=== PATIENT | female | born 1975 | race Caucasian/White ===

== ENCOUNTER 2018-04-28 17:59 | Inpatient (IN) ==
--- NOTE | 2018-04-28 19:59 | ED ---
HPI General Chief complaint: Psychiatric Symptoms Stated complaint: Psych Eval Vol Time Seen by Provider: 04/28/18 19:54 Source: patient Mode of arrival: ambulatory Limitations: no limitations History of Present Illness HPI narrative: 42-year-old female with history of bipolar disorder presents emergency department voluntarily for psychiatric evaluation. Patient states she has been worsening depression. She has been having suicidal thoughts. She has no active plan. Patient does have 2 previous suicide attempt many years ago. She states she is taking her medication as prescribed over the last 3 days her thoughts have become very strong. She has no other symptoms to report. Related Data Home Medications Medication Instructions Recorded Confirmed aripiprazole [Abilify] 15 mg PO DAILY 04/28/18 04/28/18 cetirizine [Zyrtec] 10 mg PO DAILY 04/28/18 04/28/18 duloxetine [Cymbalta] 60 mg PO BID 04/28/18 04/28/18 esomeprazole magnesium [Nexium] 40 mg PO DAILY 04/28/18 04/28/18 hydroxyzine pamoate 25 mg PO QID 04/28/18 04/28/18 lamotrigine [Lamictal] 150 mg PO BID 04/28/18 04/28/18 levothyroxine [Synthroid] 75 mcg PO DAILY 04/28/18 04/28/18 mirtazapine [Remeron] 15 mg PO HS 04/28/18 04/28/18 Allergies Allergy/AdvReac Type Severity Reaction Status Date / Time No Known Allergies Allergy Unverified 04/28/18 19:54 Review of Systems ROS: all other systems reviewed are negative PMFSH History History Provided By: Patient Medical History Medical History Anxiety (Acute) Bipolar disorder (Acute) Depression (Acute) Thyroid disease (Acute) Tibia/fibula fracture (Acute) Social History Social History Substance History: No History of Abuse Second Hand Smoke Exposure: No Smoking Status: Never smoker How Often Do You Have a Drink Containing Alcohol: Never Recent Travel in [place] within the Last 8 Weeks: No Recent Out of Country Travel within the Last 8 Weeks: No Course Initial Documented Vital Signs Temperature 98.4 F 04/28/18 18:22 Pulse Rate 121 H 04/28/18 18:22 Respiratory Rate 16 04/28/18 18:22 Blood Pressure 152/94 H 04/28/18 18:22 Pulse Oximetry 98 04/28/18 18:22 Last Documented Vital Signs Temperature 98.4 F 04/28/18 18:22 Pulse Rate 88 04/29/18 02:44 Respiratory Rate 17 04/29/18 02:44 Blood Pressure 134/62 04/29/18 02:44 Pulse Oximetry 98 04/29/18 02:44 Medical Decision Making JENNY Attestation JENNY supervised visit: Yes MDM Narrative Medical decision making narrative: 42-year-old female presents emergency department voluntarily for psychiatric evaluation. Patient appears well and without distress. Vital signs are stable. Lab work is reviewed and without acute concern. Patient is medically cleared to undergo psychiatric screening for further evaluation and disposition. Mental health screening discussed with the patient. Psychiatric screen ordered. Medical Screen Exam Complete: Yes Emergency Medical Condition: Yes Differential Diagnosis Differential Diagnosis: Mood disorder versus personality disorder versus adjustment reaction disorder Lab Data Lab results reviewed: Yes I reviewed the patient's lab results. Result diagrams: 04/28/18 20:08 04/28/18 20:08 Lab Results 04/28/18 04/28/18 04/28/18 Range/Units 20:08 20:08 20:08 WBC 12.0 H (4.0-11.0) th/mm3 RBC 4.68 (4.00-5.30) mil/mm3 Hgb 12.4 (11.6-15.3) gm/dL Hct 37.0 (35.0-46.0) % MCV 79.1 L (80.0-100.0) fL MCH 26.6 L (27.0-34.0) pg MCHC 33.6 (32.0-36.0) % RDW 14.5 (11.6-17.2) % Plt Count 517 H (150-450) th/mm3 MPV 7.3 (7.0-11.0) fL Neut % (Auto) 65.1 (16.0-70.0) % Lymph % (Auto) 25.7 (9.0-44.0) % [place] % (Auto) 6.4 (0.0-8.0) % Eos % (Auto) 1.8 (0.0-4.0) % Baso % (Auto) 1.0 (0.0-2.0) % Neut # (Auto) 7.8 H (1.8-7.7) th/mm3 Lymph # (Auto) 3.1 (1.0-4.8) th/mm3 [place] # (Auto) 0.8 (0.0-0.9) th/mm3 Eos # (Auto) 0.2 (0.0-0.4) th/mm3 Baso # (Auto) 0.1 (0.0-0.2) th/mm3 WBC Differential . Differential Comment Auto diff final Sodium 139 (136-145) meq/L Potassium 3.7 (3.5-5.1) meq/L Chloride 106 (98-107) meq/L Carbon Dioxide 24.5 (21.0-32.0) meq/L Anion Gap 9 (5-15) meq/L BUN 6 L (7-18) mg/dL Creatinine 0.74 (0.50-1.00) mg/dL Estimated GFR 86 L (>89) mL/min Random Glucose 113 H (74-106) mg/dL Calcium 8.8 (8.5-10.1) mg/dL TSH 2.920 (0.358-3.740) uIU/mL Urine Opiates Screen Neg (Neg) Ur Barbiturates Screen Neg (Neg) Ur Amphetamines Screen Neg (Neg) U Benzodiazepines Scrn Neg (Neg) Urine Cocaine Screen Neg (Neg) U Cannabinoids Screen Neg (Neg) Serum Alcohol Less than 3 (0-5) mg/dL Discharge Plan Discharge Disposition Patient Disposition: 30 Still Patient Discharge Condition Condition: Stable Discharge Details Diagnosis: Suicidal ideation Physicians Team ED Provider: Jeremiah Kenney ED Midlevel Provider: Chloe Velázquez Primary Care Provider: UNKNOWN, Rxs /Orders / Referrals /Forms Prescriptions: No Action lamotrigine [Lamictal] 150 mg Tablet 150 mg PO BID RF: 0 cetirizine [Zyrtec] 10 mg Tablet 10 mg PO DAILY RF: 0 levothyroxine [Synthroid] 75 mcg Tablet 75 mcg PO DAILY RF: 0 esomeprazole magnesium [Nexium] 40 mg Capsule,Delayed Release(Dr/Ec) 40 mg PO DAILY RF: 0 mirtazapine [Remeron] 15 mg Tablet 15 mg PO HS RF: 0 hydroxyzine pamoate 25 mg Capsule 25 mg PO QID RF: 0 aripiprazole [Abilify] 15 mg Tablet 15 mg PO DAILY RF: 0 duloxetine [Cymbalta] 60 mg Capsule,Delayed Release(Dr/Ec) 60 mg PO BID RF: 0 Status ED Status: Medically Cleared
[2018-04-28 20:24] LABS: Baso # (Auto) 0.1 th/mm3 (0.0-0.2); Eos # (Auto) 0.2 th/mm3 (0.0-0.4); Eos % (Auto) 1.8 % (0.0-4.0); Hemoglobin 12.4 gm/dL (11.6-15.3); Lymph # (Auto) 3.1 th/mm3 (1.0-4.8); Lymph % (Auto) 25.7 % (9.0-44.0); Mean Corpuscular HGB Conc 33.6 % (32.0-36.0); Mean Corpuscular Hemoglobin 26.6 pg (27.0-34.0); Mean Corpuscular Volume 79.1 fL (80.0-100.0); Mean Platelet Volume 7.3 fL (7.0-11.0); Mono # (Auto) 0.8 th/mm3 (0.0-0.9); Mono % (Auto) 6.4 % (0.0-8.0); Neut # (Auto) 7.8 th/mm3 (1.8-7.7); Neut % (Auto) 65.1 % (16.0-70.0); Platelet Count 517 th/mm3 (150-450); Red Blood Count 4.68 mil/mm3 (4.00-5.30); Red Cell Distribution Width 14.5 % (11.6-17.2)
[2018-04-28 20:32] LABS: Amphetamine Screen,Urine Neg (Neg); Barbiturate Screen,Urine Neg (Neg); Cannabinoid Screen,Urine Neg (Neg); Cocaine Screen,Urine Neg (Neg)
[2018-04-28 20:40] LABS: Anion Gap 9 meq/L (5-15); Blood Urea Nitrogen 6 mg/dL (7-18); Calcium 8.8 mg/dL (8.5-10.1); Carbon Dioxide 24.5 meq/L (21.0-32.0); Chloride 106 meq/L (98-107); Glomerular Filtration Rate 86 mL/min (>89); Glucose,Random 113 mg/dL (74-106); Potassium 3.7 meq/L (3.5-5.1); Sodium 139 meq/L (136-145)
[2018-04-28 20:42] LABS: Opiate Screen,Urine Neg (Neg)
[2018-04-28] MEDS ORDERED: OLANZapine 10 MG ODT Tablet PO ONE (21:38)
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
[2018-04-29 09:43] LABS: Alanine Aminotransferase 27 U/L (10-53); Albumin 3.7 g/dL (3.4-5.0); Aspartate Aminotransferase 23 U/L (15-37)
[2018-04-29 09:45] LABS: Alkaline Phosphatase 103 U/L (45-117); Total Protein 8.3 g/dL (6.4-8.2)
[2018-04-29] MEDS: lamoTRIgine 100 MG Tablet PO SCH ×2 (10:06→21:09)
[2018-04-29] MEDS: Duloxetine 60 MG DR Capsule PO SCH ×2 (10:06→21:08)
[2018-04-29] MEDS: Mirtazapine 15 MG Tablet PO SCH (21:09)
[2018-04-29] MEDS: Prazosin HCl 1 MG Capsule PO SCH (21:09)
[2018-04-30] MEDS: Levothyroxine 75 MCG Tablet PO SCH (05:39)
[2018-04-30] MEDS: lamoTRIgine 100 MG Tablet PO SCH ×2 (09:42→21:31)
[2018-04-30] MEDS: Duloxetine 60 MG DR Capsule PO SCH ×2 (09:43→21:28)
--- NOTE | 2018-04-30 13:41 | P.PNPSY ---
Subjective Chief Complaint: Depression, SI Remarks: Patient seen and examined with nurse. Chart reviewed. Case discussed with nursing staff. Patient placed with one-to-one sitter over the weekend because she declined contract for safety on the inpatient unit. Patient is reportedly displeased to have been placed with a one-to-one. I have endeavored to explain the rationale to her today for the one-to-one. She continues to endorse suicidal ideations with plans to self injure on the unit although she insists that she is "controlling these thoughts." Affect remains dysphoric. She continues to complain of anxiety and racing thoughts. She does not feel like the hydroxyzine is doing anything as it is currently dosed. Cluster B personality traits noted. Some staff splitting noted. Denies side effects from medications. Complains of headache says that she normally takes Fioricet. I did review the E-FORCSE report and see no controlled substances prescribed to the patient. She says that she got this medication in [facility]. I will have the nursing staff confirm with her pharmacy in that state whether she was receiving Fioricet. I will add Tylenol for the time being. Vital Signs Temp Pulse Resp BP Pulse Ox 04/30/18 05:59 97.7 F 90 16 113/57 L 95 04/29/18 18:40 89 132/63 95 Intake and Output 04/29/18 04/30/18 04/30/18 22:59 06:59 14:59 Other: Weight 87.3 kg 87.6 kg Weight On Admission 87.3 kg Labs reviewed. Recheck CBC for leukocytosis. Review of Systems All other systems reviewed negative except as stated in HPI Mental Status Examination Appearance: Appropriate Consciousness: Alert Orientation: x4 Motor Activity: Other (No abnormal motor movements noted) Speech: Unremarkable Language: Adequate Fund of Knowledge: Adequate Attention and Concentration: Adequate Memory: Unremarkable (Grossly intact on clinical exam) Mood: Sad Affect: Other (Dysphoric) Thought Process & Associations: Intact Thought Content: Appropriate Hallucination Type: None Delusion Type: None Suicidal Ideation: Yes Suicidal Plan: Yes Suicidal Intention: No Homicidal Ideation: No Homicidal Plan: No Homicidal Intention: No Insight: Fair Judgment: Impulsive Assessment and Plan - Assessment (1) Bipolar affective disorder, depressed Code(s): F31.30 - Bipolar disorder, current episode depressed, mild or moderate severity, unspecified Status: Acute (2) Chronic post-traumatic stress disorder (PTSD) Code(s): F43.12 - Post-traumatic stress disorder, chronic Status: Acute - Plan Plan: Titrate hydroxyzine to 50 mg 4 times a day. Continue other psychotropics as ordered. Continue one-to-one for safety given reported psychiatric symptoms as above. Continue to monitor on the inpatient unit. Continue other medications and care as ordered. Justification for Continued Inpatient Stay: Monitoring for impairment in safety. Medication changes. Risk for decompensation in less restrictive environment. Discharge Planning: Pending psychiatric stabilization. Case discussed with counselor. Request Healthcare Surrogate/Guardian Advocate?: No
[2018-04-30] MEDS: Acetaminophen 325 MG Tablet PO PRN (15:45)
--- NOTE | 2018-04-30 15:45 | P.TTN ---
- Patient Problems Problems: 1. Discharge planning 2. Medication compliance 3. Knowledge deficit 4. Lack of coping skills - Progress Toward Goals Provider Present: Dr. Luis Armando Alvares Provider Input: new admission over the weekend Nurse(s) Present: Vicente Nurse Input: Fair sleep pattern, treatment cooperative, med compliant Psychiatric Counselors Present: Dina Stoddard LCSW, Sae Braxton Jr., [facility], Unique Brown, [facility] Psychiatric Therapist Input: New over the weekend Group Spec/RT/OT/YOUNG Present: Anh Naylor, [facility] Group Spec/RT/OT/YOUNG Input: Pt attended the exercise group with her 1:1 this morning, patient appeared anxious and paranoid. Pt total focus was to no longer have a 1:1. - Documentation Teaching Recipient: Patient
[2018-04-30] MEDS ORDERED: Butalbital/APAP/Caff 50/325/40 MG Tablet PO PRN (18:00)
[2018-04-30 20:25] LABS: Baso % (Auto) 0.4 % (0.0-2.0); Eos # (Auto) 0.2 th/mm3 (0.0-0.4); Eos % (Auto) 2.2 % (0.0-4.0); Hematocrit 37.7 % (35.0-46.0); Hemoglobin 12.6 gm/dL (11.6-15.3); Lymph # (Auto) 3.4 th/mm3 (1.0-4.8); Lymph % (Auto) 31.2 % (9.0-44.0); Mean Corpuscular HGB Conc 33.3 % (32.0-36.0); Mean Corpuscular Hemoglobin 26.3 pg (27.0-34.0); Mean Corpuscular Volume 78.9 fL (80.0-100.0); Mean Platelet Volume 7.3 fL (7.0-11.0); Mono # (Auto) 0.9 th/mm3 (0.0-0.9); Neut # (Auto) 6.3 th/mm3 (1.8-7.7); Neut % (Auto) 58.2 % (16.0-70.0); Platelet Count 524 th/mm3 (150-450); Red Blood Count 4.78 mil/mm3 (4.00-5.30); White Blood Count 10.8 th/mm3 (4.0-11.0)
[2018-04-30] MEDS: Prazosin HCl 1 MG Capsule PO SCH (21:28)
[2018-04-30] MEDS: Mirtazapine 15 MG Tablet PO SCH (21:28)
[2018-05-01] MEDS: Levothyroxine 75 MCG Tablet PO SCH (06:14)
[2018-05-01] MEDS: Duloxetine 60 MG DR Capsule PO SCH ×2 (08:44→20:51)
[2018-05-01] MEDS: lamoTRIgine 100 MG Tablet PO SCH ×3 (08:44→20:56)
--- NOTE | 2018-05-01 15:37 | P.TTN ---
- Patient Problems Problems: 1. Discharge planning 2. Medication compliance 3. Knowledge deficit 4. Lack of coping skills - Progress Toward Goals Provider Present: Dr. Luis Armando Alvares Provider Input: new admission over the weekend. 05/01/18 D/c the 1:1 to contract for safety and then discuss a discharge home Nurse(s) Present: Vicente Nurse Input: Fair sleep pattern, treatment cooperative, med compliant Psychiatric Counselors Present: Dina Stoddard LCSW, Sae Braxton Jr., [facility], Unique Brown, [facility] Psychiatric Therapist Input: New over the weekend. 05/01/18 wants the 1:1 discontinued, but still is stating she want to kill herself, she is very easily aggitated and appears very attention seeking - she does not want residential, she does not want her boyfriend called by this counselor and does not want this counselor involved in her care Group Spec/RT/OT/YOUNG Present: Anh Naylor, [facility] Group Spec/RT/OT/YOUNG Input: Pt attended the exercise group with her 1:1 this morning, patient appeared anxious and paranoid. Pt total focus was to no longer have a 1:1. 05/01/18 very attention seeking comes to select groups - Documentation Teaching Recipient: Patient
--- NOTE | 2018-05-01 17:07 | P.PNPSY ---
Subjective Chief Complaint: Depression, SI Remarks: Patient seen and examined with nurse. Chart reviewed. Case discussed with staff. No behavioral issues noted overnight, no evidence of suicidality or self injury. Case discussed in treatment team. Counselor is subsequently alerts me that she had an interaction with the patient in which patient was engaging in staff splitting and displaying prominent borderline personality traits. Patient is requesting a new counselor, and I have discussed this with the counselor health unit supervisor. On my examination today, the patient continues to complain of feeling anxious and depressed. She endorses vague suicidal ideation but contracts for safety on the inpatient unit today. She continues to exhibit extremely prominent cluster B personality traits. She complains of poor sleep, and we discuss medication adjustments that might improve sleep. We discuss replacing Abilify with Zyprexa although I do caution her about the potential for weight gain. We agreed to start the patient on a calorie restricted diet to reduce the risk of this happening. No side effects from medications. No physical complaints. Vital Signs Temp Pulse Resp BP Pulse Ox 05/01/18 05:41 98 F 89 16 128/64 97 04/30/18 18:51 98.2 F 75 16 123/76 97 Laboratory Results - last 24 hr 04/30/18 19:45 WBC 10.8 RBC 4.78 Hgb 12.6 Hct 37.7 MCV 78.9 L MCH 26.3 L MCHC 33.3 RDW 15.0 Plt Count 524 H MPV 7.3 Neut % (Auto) 58.2 Lymph % (Auto) 31.2 Ness % (Auto) 8.0 Eos % (Auto) 2.2 Baso % (Auto) 0.4 Neut # (Auto) 6.3 Lymph # (Auto) 3.4 Ness # (Auto) 0.9 Eos # (Auto) 0.2 Baso # (Auto) 0.0 WBC Differential . Differential Comment Auto diff final Labs reviewed. Leukocytosis resolved. Review of Systems All other systems reviewed negative except as stated in HPI Mental Status Examination Appearance: Appropriate Consciousness: Alert Orientation: x4 Motor Activity: Other (No motor abnormalities noted) Speech: Unremarkable Language: Adequate Fund of Knowledge: Adequate Attention and Concentration: Adequate Memory: Unremarkable (Grossly intact on clinical exam) Mood: Sad Affect: Other (Seems less dysphoric today) Thought Process & Associations: Intact Thought Content: Appropriate Hallucination Type: None Delusion Type: None Suicidal Ideation: Yes (Vague) Suicidal Plan: No Suicidal Intention: No (Contracts for safety on the inpatient unit) Homicidal Ideation: No Homicidal Plan: No Homicidal Intention: No Insight: Fair Judgment: Impulsive Assessment and Plan - Assessment (1) Bipolar affective disorder, depressed Code(s): F31.30 - Bipolar disorder, current episode depressed, mild or moderate severity, unspecified Status: Acute (2) Chronic post-traumatic stress disorder (PTSD) Code(s): F43.12 - Post-traumatic stress disorder, chronic Status: Acute - Plan Plan: Discontinue Abilify and initiate Zyprexa 10 mg at bedtime. Continue other psychotropics as ordered. Discontinue one-to-one sitter as the patient is now misty for safety on the inpatient unit and continue to monitor closely on the inpatient unit. Continue other medications and care as ordered. Justification for Continued Inpatient Stay: Medication changes. Monitoring for impairment in safety. High risk for decompensation in less restrictive environment. Discharge Planning: Pending psychiatric stabilization Request Healthcare Surrogate/Guardian Advocate?: No
[2018-05-01] MEDS: Mirtazapine 15 MG Tablet PO SCH (20:51)
[2018-05-01] MEDS: Prazosin HCl 1 MG Capsule PO SCH (20:51)
[2018-05-01] MEDS ORDERED: OLANZapine 10 MG Tablet PO SCH (21:00)
[2018-05-02] MEDS: lamoTRIgine 100 MG Tablet PO SCH ×2 (08:29→21:17)
[2018-05-02] MEDS: Levothyroxine 75 MCG Tablet PO SCH (08:30)
[2018-05-02] MEDS: Duloxetine 60 MG DR Capsule PO SCH ×2 (08:32→21:19)
[2018-05-02] MEDS: Acetaminophen 325 MG Tablet PO PRN (12:33)
[2018-05-02] MEDS ORDERED: OLANZapine 2.5 MG Tablet PO PRN (12:56)
--- NOTE | 2018-05-02 12:56 | P.PNPSY ---
Subjective Chief Complaint: Depression, SI Remarks: Patient seen and examined with nurse. Chart reviewed. Case discussed with nursing staff. No acting out or self injury off of one-to-one. On my examination today, the patient remains fairly dysphoric although she denies active thoughts of self-harm now. She continues to experience some intermittent suicidal ideation however. She does say that she slept somewhat better with addition of Zyprexa but continues to experience nightmares and notes that she often ends up killing herself in nightmares which leads her to have suicidal ideation when she awakens. Cluster B personality traits persist but are a little less prominent today. She continues to complain of anxiety. She denies side effects from medications. She does not feel like the hydroxyzine is helping at all. She would like to have something p.r.n. for anxiety. No physical complaints. Vital Signs Temp Pulse Resp BP Pulse Ox 05/02/18 06:00 97.7 F 84 15 99/59 L 95 Intake and Output 05/01/18 05/02/18 05/02/18 22:59 06:59 14:59 Intake Total 360 / 360 Balance 360 / 360 Intake: Oral 360 / 360 Labs reviewed. No new labs. Review of Systems All other systems reviewed negative except as stated in HPI Mental Status Examination Appearance: Appropriate Consciousness: Alert Orientation: x4 Motor Activity: Other (No abnormal motor movements noted) Speech: Unremarkable Language: Adequate Fund of Knowledge: Adequate Attention and Concentration: Adequate Memory: Unremarkable (Grossly intact on clinical exam) Mood: Sad Affect: Other (Perhaps a little less dysphoric today) Thought Process & Associations: Intact Thought Content: Appropriate Hallucination Type: None Delusion Type: None Suicidal Ideation: Yes (Intermittent) Suicidal Plan: No Suicidal Intention: No (No urge to hurt self on inpatient unit) Homicidal Ideation: No Homicidal Plan: No Homicidal Intention: No Insight: Fair Judgment: Impulsive Assessment and Plan - Assessment (1) Bipolar affective disorder, depressed Code(s): F31.30 - Bipolar disorder, current episode depressed, mild or moderate severity, unspecified Status: Acute (2) Chronic post-traumatic stress disorder (PTSD) Code(s): F43.12 - Post-traumatic stress disorder, chronic Status: Acute - Plan Plan: Taper Atarax to 25 mg 4 times daily with plans to continue to taper/discontinue this agent due to lack of efficacy. I will titrate the patient's Zyprexa at bedtime for sleep and mood stabilization and also provide a smaller dose of Zyprexa daily as needed for off label management of anxiety. I did consider titrating patient's prazosin to target residual traumatic nightmares, but I believe her low blood pressure makes such a move unwise. Continue to monitor on the inpatient unit. Continue other medications and care as ordered. Justification for Continued Inpatient Stay: Medication changes. Monitoring for impairment in safety. Risk for decompensation in less restrictive environment. Discharge Planning: Pending psychiatric stabilization. Request Healthcare Surrogate/Guardian Advocate?: No
[2018-05-02] MEDS: Prazosin HCl 1 MG Capsule PO SCH (21:17)
[2018-05-02] MEDS: Mirtazapine 15 MG Tablet PO SCH (21:17)
[2018-05-03 05:59] VITALS: BP 123/59; PULSE 84; RESP 18; O2SAT 95
[2018-05-03] MEDS: Levothyroxine 75 MCG Tablet PO SCH (06:25)
[2018-05-03 07:19] VITALS: TEMP 98
[2018-05-03] MEDS: lamoTRIgine 100 MG Tablet PO SCH (08:41)
[2018-05-03] MEDS: Duloxetine 60 MG DR Capsule PO SCH (08:41)
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
== END 2018-05-03 15:10 | disposition home or self-care (01) ==
LOC: NEPD 17:59 → NEDA 04-29 08:51 → H260 04-29 10:31
PROVIDERS: ADMIT Psychiatry & Neurology Psychiatry; ATTEND Psychiatry & Neurology Psychiatry